=== PATIENT | male | born 1980 | race Caucasian/White ===

== ENCOUNTER 2023-10-21 22:19 | Emergency (ER) | payer OTHER ==
[2023-10-21 22:30] VITALS: BP 126/75; PULSE 70; RESP 18; TEMP 98.4; BMI 27.3
[2023-10-22] MEDS ORDERED: CLINDAMYCIN HCL 150 MG CAPSULE (FP) ONE (00:47)
[2023-10-22] MEDS: CLINDAMYCIN HCL 150 MG CAPSULE (FP) PO ONE (00:56)
[2023-10-22] MEDS: MUPIROCIN 2% TOPICAL OINTMENT 22 GM TUBE TP ONE (00:56)
== END 2023-10-22 00:56 | disposition home or self-care (01) ==
LOC: JER 22:19
DX: L73.9 Follicular disorder, unspecified (principal); R21 Rash and other nonspecific skin eruption
CPT/HCPCS: 99283-25